=== PATIENT | male | born 1965 | race Caucasian/White ===

== ENCOUNTER 2021-10-02 11:13 | Inpatient (IN) | payer BC ==
[2021-10-02] MEDS ORDERED: Sodium Chloride 0.9% 1,000 ML IV ONE ×2 (11:58→13:48)
[2021-10-02 12:21] LABS: CORONAVIRUS COVID-19 NAA NEGATIVE (NEGATIVE); INFLUENZA A NAA NEGATIVE (NEGATIVE); INFLUENZA B NAA NEGATIVE (NEGATIVE)
[2021-10-02 12:23] LABS: CARBON DIOXIDE,CO2 23.5 mmol/L (21.0-32.0)
[2021-10-02] MEDS ORDERED: Ondansetron 4 MG/2 ML SDV IVPUSH ONE (12:30)
[2021-10-02] MEDS ORDERED: Pantoprazole 80 MG in Sodium Chloride 0.9% 10 ML IVPUSH ONE (13:57)
[2021-10-02] MEDS ORDERED: Ondansetron 4 MG/2 ML SDV IVPUSH PRN (16:52)
[2021-10-02] MEDS ORDERED: Albuterol/Ipratropium 3.0-0.5 MG/3 ML Neb Soln NEB PRN (16:53)
[2021-10-02] MEDS: Lactated Ringers 1,000 ML IV SCH (17:02)
[2021-10-02] MEDS: cefTRIAXone 1 GM in Sodium Chloride 0.9% 50 ML IV SCH (20:34)
[2021-10-02] MEDS: atorvaSTATin 10 MG Tab PO SCH (20:34)
[2021-10-02] MEDS: Apixaban 2.5 MG Tab PO SCH (20:34)
[2021-10-03] MEDS: Lactated Ringers 1,000 ML IV SCH ×3 (01:39→18:50)
[2021-10-03 06:36] LABS: POTASSIUM,K 3.4 mmol/L (3.5-5.1)
[2021-10-03] MEDS: Pantoprazole 40 MG in Sodium Chloride 0.9% 10 ML IVPUSH SCH (09:03)
[2021-10-03] MEDS: Apixaban 2.5 MG Tab PO SCH (09:03)
[2021-10-03] MEDS ORDERED: Magnesium Sulfate/Water 2 GM/50 ML Premix Bag IV ONE (09:18)
[2021-10-03] MEDS ORDERED: Magnesium Sulfate/Water 2 GM in Premix Bag 1 BAG IV ONE (09:30)
[2021-10-03] MEDS: Diltiazem 120 MG Cap.CD PO SCH (09:48)
[2021-10-03] MEDS ORDERED: Apixaban 2.5 MG Tab PO ONE (10:15)
[2021-10-03] MEDS: Carvedilol 12.5 MG Tab PO SCH ×2 (10:41→20:28)
[2021-10-03] MEDS ORDERED: Potassium Chloride 20 MEQ Tab.ER PO ONE (12:06)
[2021-10-03] MEDS: atorvaSTATin 10 MG Tab PO SCH (20:27)
[2021-10-03] MEDS: Apixaban 5 MG Tab PO SCH (20:28)
[2021-10-03] MEDS: cefTRIAXone 1 GM in Sodium Chloride 0.9% 50 ML IV SCH (20:28)
[2021-10-04] MEDS: Lactated Ringers 1,000 ML IV SCH (03:50)
[2021-10-04 08:03] LABS: CARBON DIOXIDE,CO2 26.5 mmol/L (21.0-32.0); POTASSIUM,K 3.9 mmol/L (3.5-5.1)
[2021-10-04] MEDS: Diltiazem 120 MG Cap.CD PO SCH (08:21)
[2021-10-04] MEDS: Carvedilol 12.5 MG Tab PO SCH (08:22)
[2021-10-04] MEDS: Apixaban 5 MG Tab PO SCH (08:22)
[2021-10-04] MEDS: Pantoprazole 40 MG in Sodium Chloride 0.9% 10 ML IVPUSH SCH (08:23)
[2021-10-04] MEDS ORDERED: Magnesium Sulfate/Water 2 GM/50 ML Premix Bag IV ONE (10:34)
[2021-10-04] MEDS ORDERED: Magnesium Sulfate/Water 2 GM in Premix Bag 1 BAG IV ONE (10:45)
== END 2021-10-04 13:00 | disposition home or self-care (01) | DRG 469 ==
LOC: MW.ED 11:13 → MW.MS 14:44
PROVIDERS: ADMIT Student in an Organized Health Care Education/Training Program; ATTEND Student in an Organized Health Care Education/Training Program
DX: N17.9 Acute kidney failure, unspecified (principal); I48.91 Unspecified atrial fibrillation; E86.0 Dehydration; N30.01 Acute cystitis with hematuria; K57.90 Diverticulosis of intestine, part unspecified, without perforation or abscess without bleeding; H54.7 Unspecified visual loss; E78.00 Pure hypercholesterolemia, unspecified; Z96.659 Presence of unspecified artificial knee joint; Z20.822 Contact with and (suspected) exposure to COVID-19; Z79.01 Long term (current) use of anticoagulants; Z79.899 Other long term (current) drug therapy; Z86.19 Personal history of other infectious and parasitic diseases; K76.0 Fatty (change of) liver, not elsewhere classified
CPT/HCPCS: 0240U; 36415; 74176; 74176-26; 80048; 80053; 81001; 83735; 84100; 84484; 85025; 87086; 93005; 96361; 96374; 96375; 99285-25; A9270-GY; C9113; J0696; J2405; J3475; J3490; J7030; J7120

== ENCOUNTER 2022-05-28 15:00 | Emergency (ER) | payer BC ==
[2022-05-28] MEDS ORDERED: Sodium Chloride 0.9% 2.5 ML Syringe FLUSH PRN (15:13)
[2022-05-28] MEDS ORDERED: Sodium Chloride 0.9% 10 ML Syringe FLUSH PRN (15:13)
[2022-05-28] MEDS ORDERED: fentaNYL 100 MCG/2 ML SDV ONE (15:17)
[2022-05-28] MEDS ORDERED: fentaNYL 100 MCG/2 ML SDV IVPUSH ONE (15:25)
[2022-05-28] MEDS ORDERED: Etomidate 2 MG/ML 20 ML SDV IVPUSH ONE (15:25)
[2022-05-28] MEDS ORDERED: Amiodarone 150 MG in Dextrose 5% in Water 100 ML IV ONE ×2 (15:25)
[2022-05-28] MEDS ORDERED: diphenhydrAMINE 50 MG/ML SDV ONE (15:38)
[2022-05-28] MEDS ORDERED: Prochlorperazine 10 MG/2 ML SDV ONE (15:39)
[2022-05-28] MEDS ORDERED: diphenhydrAMINE 50 MG/ML SDV IVPUSH ONE (15:45)
[2022-05-28] MEDS ORDERED: Prochlorperazine 10 MG/2 ML SDV IVPUSH ONE (15:45)
[2022-05-28 16:00] LABS: CARBON DIOXIDE,CO2 16.5 mmol/L (21.0-32.0); POTASSIUM,K 5.1 mmol/L (3.5-5.1)
== END 2022-05-28 18:14 | disposition home or self-care (01) ==
LOC: MW.ED 15:00
DX: S09.90XA Unspecified injury of head, initial encounter (principal); I48.91 Unspecified atrial fibrillation; E78.00 Pure hypercholesterolemia, unspecified; Z79.01 Long term (current) use of anticoagulants; Z79.899 Other long term (current) drug therapy; I44.4 Left anterior fascicular block; W18.30XA Fall on same level, unspecified, initial encounter
CPT/HCPCS: 36415; 70450; 71045; 71275; 74177; 80053; 82803; 83690; 84439; 84443; 84484; 85025; 85610; 85730; 86850; 86900; 86901; 92960; 93005; 96374; 96375; 99285; J0282; J0780; J1200; J3010; J3490; J7060; 93010; 99152

== ENCOUNTER 2022-06-16 08:27 | Inpatient (IN) | payer BC ==
[2022-06-16] MEDS ORDERED: Sodium Chloride 0.9% 1,000 ML IV ONE (08:42)
[2022-06-16] MEDS ORDERED: Diltiazem 25 MG/5 ML SDV IVPUSH ONE ×2 (08:43→09:02)
[2022-06-16] MEDS ORDERED: Diltiazem 100 MG in Sodium Chloride 0.9% 100 ML IV SCH (09:15)
[2022-06-16] MEDS ORDERED: Diltiazem IR 60 MG Tab PO ONE (09:35)
[2022-06-16 09:43] LABS: CARBON DIOXIDE,CO2 23.5 mmol/L (21.0-32.0)
[2022-06-16] MEDS ORDERED: Magnesium Sulfate/Water 2 GM in Premix Bag 1 BAG IV ONE (09:54)
[2022-06-16] MEDS ORDERED: LORazepam 2 MG/ML SDV IVPUSH ONE (10:41)
[2022-06-16] MEDS ORDERED: Alum Hydro/Mag Hydro/Simeth XS 15 ML, Lidocaine 2% 5 ML PO ONE ×2 (12:05)
[2022-06-16 15:16] LABS: POTASSIUM,K 4.1 mmol/L (3.5-5.1)
[2022-06-16] MEDS ORDERED: Promethazine 25 MG Tab PO PRN (15:55)
[2022-06-16] MEDS: Famotidine 20 MG Tab PO SCH (18:35)
[2022-06-16] MEDS ORDERED: Sotalol 80 MG Tab PO SCH (21:00)
[2022-06-16] MEDS: atorvaSTATin 10 MG Tab PO SCH (21:24)
[2022-06-16] MEDS: Apixaban 5 MG Tab PO SCH (21:24)
[2022-06-16] MEDS: Diltiazem 180 MG Cap.CD PO SCH (21:25)
[2022-06-17 07:34] LABS: CARBON DIOXIDE,CO2 26.4 mmol/L (21.0-32.0); POTASSIUM,K 3.7 mmol/L (3.5-5.1)
[2022-06-17] MEDS ORDERED: Magnesium Sulfate/Water 2 GM in Premix Bag 1 BAG IV ONE (07:49)
[2022-06-17] MEDS ORDERED: Diltiazem IR 60 MG Tab PO ONE (08:40)
[2022-06-17] MEDS: Lisinopril 5 MG Tab PO SCH (09:00)
[2022-06-17] MEDS: Famotidine 20 MG Tab PO SCH (09:10)
[2022-06-17] MEDS: Apixaban 5 MG Tab PO SCH ×2 (09:11→20:14)
[2022-06-17] MEDS: Diltiazem 180 MG Cap.CD PO SCH (09:53)
[2022-06-17] MEDS: Sotalol 80 MG Tab PO SCH ×2 (10:04→20:31)
[2022-06-17] MEDS: Lidocaine 5% 700 MG Patch TRDERM SCH (10:06)
[2022-06-17] MEDS ORDERED: Potassium Chloride 20 MEQ Tab.ER PO ONE (10:24)
[2022-06-17] MEDS: Acetaminophen 325 MG Tab PO PRN (15:31)
[2022-06-17] MEDS: atorvaSTATin 10 MG Tab PO SCH (20:13)
[2022-06-17] MEDS ORDERED: hydrOXYzine Pamoate 25 MG Cap PO SCH (21:00)
[2022-06-17 23:11] LABS: INFLUENZA A NAA NEGATIVE (NEGATIVE); INFLUENZA B NAA NEGATIVE (NEGATIVE)
[2022-06-18] MEDS: Acetaminophen 325 MG Tab PO PRN (00:57)
[2022-06-18 06:16] LABS: CARBON DIOXIDE,CO2 25.7 mmol/L (21.0-32.0); POTASSIUM,K 4.3 mmol/L (3.5-5.1)
[2022-06-18] MEDS: Apixaban 5 MG Tab PO SCH (09:17)
[2022-06-18] MEDS: Lisinopril 5 MG Tab PO SCH (09:17)
[2022-06-18] MEDS: Famotidine 20 MG Tab PO SCH (09:17)
[2022-06-18] MEDS: Lidocaine 5% 700 MG Patch TRDERM SCH (09:18)
[2022-06-18] MEDS: Diltiazem 180 MG Cap.CD PO SCH (10:54)
[2022-06-18] MEDS: Sotalol 80 MG Tab PO SCH (10:54)
== END 2022-06-18 13:15 | disposition home or self-care (01) | DRG 201 ==
LOC: MW.ED 08:27 → MW.MS 15:06 → OBSVTOIN 15:55 → MW.MS 06-17 15:09
PROVIDERS: ADMIT Pediatrics; ATTEND Pediatrics
DX: I48.91 Unspecified atrial fibrillation (principal); H54.7 Unspecified visual loss; E78.00 Pure hypercholesterolemia, unspecified; Z20.822 Contact with and (suspected) exposure to COVID-19; Z96.659 Presence of unspecified artificial knee joint; E83.42 Hypomagnesemia; Z79.899 Other long term (current) drug therapy; Z79.01 Long term (current) use of anticoagulants
CPT/HCPCS: 36415; 71045; 71045-26; 80048; 80053; 83735; 83880; 84443; 84484; 85025; 85610; 85730; 93005; 93010; 96365; 96366; 96368; 96375; 96376; 99222; 99232; 99238; 99284; 99291; A9270-GY; J2060; J3475; J3490; J7030; J7050; U0002